=== PATIENT | male | born 1960 | race Caucasian/White ===

== ENCOUNTER 2020-05-22 15:17 | Observation (INO) | payer BC, OTHER ==
[2020-05-22] MEDS ORDERED: Ketorolac Tromethamine 30 MG/ML VIAL ONE (16:36)
[2020-05-22] MEDS ORDERED: Morphine 4 MG/ML VIAL ONE (16:36)
[2020-05-22] MEDS ORDERED: Ondansetron PF 4 MG/2 ML Vial ONE (16:36)
[2020-05-22 17:02] LABS: #Basophils 0.1 thou/uL (0.0-0.2); #Eosinphils 0.1 thou/uL (0.0-0.7); #Lymphocytes 1.4 thou/uL (1.20-3.40); #Monocytes 1.2 thou/uL (0.11-0.59); #Neutrophils 7.4 thou/uL (1.40-6.50); %Basophils 0.8 % (0.0-1.0); %Eosinophils 0.9 % (0.0-10.0); %Lymphocytes 13.7 % (21.0-51.0); %Monocytes 11.8 % (0.0-10.0); %Neutrophils 72.9 % (42.0-75.0); Hemoglobin 15.2 g/dL (14.0-18.0); Mean Corpuscular HGB CONC 31.9 g/dL (32.0-36.0); Mean Corpuscular Hemoglobin 25.2 pg (27.0-31.0); Mean Corpuscular Volume 78.9 fL (78.0-98.0); Mean Platelet Volume 7.9 fL (7.4-10.4); Platelet Count 268 thou/uL (130-400); RBC Distribution Width 14.2 % (11.5-14.5); Red Blood Cell (RBC) Count 6.01 mill/uL (4.70-6.10); White Blood Cell (WBC) Count 10.1 thou/uL (4.8-10.8)
[2020-05-22 17:28] LABS: ALT (SGPT) 17 U/L (8-55); AST (SGOT) 17 U/L (5-34); Albumin 4.2 g/dL (3.5-5.0); Alkaline Phosphatase 66 U/L (40-110); Anion Gap 15 mmol/L (10-20); BUN (Urea Nitrogen) 33 mg/dL (8.4-25.7); Calc. Creatinine Clearance 0 mL/min (70-130); Calcium 9.3 mg/dL (7.8-10.44); Carbon Dioxide 26 mmol/L (22-29); Chloride 102 mmol/L (98-107); Estimated GFR-MDRD 32; Glucose 82 mg/dL (70-105); Potassium 4.3 mmol/L (3.5-5.1); Protein, Total 7.2 g/dL (6.0-8.3); Sodium 139 mmol/L (136-145)
[2020-05-22 19:46] LABS: Bilirubin Negative (Negative); Blood, Urine Negative (Negative); Clarity Clear (Clear); Glucose, Urine (Dipstick) Normal (Negative); Ketone, Urine Trace mg/dL (Negative); Leukocyte 25 Leu/uL (Negative); Nitrite Negative (Negative); Protein, Urine (Dipstick) Negative (Neg-Trace); Specific Gravity, Urine 1.029 (1.002-1.036); Urobilinogen Normal mg/dL (Less than 2)
[2020-05-22 19:47] LABS: Bacteria/HPF None Seen HPF (None Seen); Mucous/LPF Rare LPF (<2+); RBC/HPF 0-3 HPF (0-3); Squamous Epithelial None Seen HPF (0-3)
[2020-05-22] MEDS ORDERED: cefTRIAXone\\ROCEPHIN 1 GM VIAL ONE (20:46)
[2020-05-22] MEDS ORDERED: Ondansetron PF 4 MG/2 ML Vial IVP PRN (22:40)
[2020-05-22] MEDS ORDERED: Sodium Chloride 0.9% 1,000 ML IV SCH (22:40)
[2020-05-22] MEDS ORDERED: Ondansetron ODT 4 MG TAB SL PRN (22:40)
[2020-05-22 23:03] VITALS: BMI 31.8
[2020-05-23] MEDS: Morphine 4 MG/ML VIAL SLOW IVP PRN ×2 (01:52→06:52)
[2020-05-23] MEDS ORDERED: Iothalamate Meglumine 60% 50 ML VIAL FS ONE (08:59)
[2020-05-23] MEDS ORDERED: B & O ONE (08:59)
[2020-05-23] MEDS ORDERED: Sodium Chloride 0.9% 10 ML ONE ×2 (09:17→09:18)
[2020-05-23] MEDS ORDERED: Fentanyl 100 MCG/2 ML VIAL ONE (09:34)
[2020-05-23] MEDS ORDERED: traMADol HCl 50 MG TAB PO PRN (09:48)
[2020-05-23] MEDS ORDERED: Oxybutynin 5 MG TAB PO PRN (09:48)
[2020-05-23] MEDS ORDERED: PROPOFOL 200 MG/20 ML VIAL ONE (10:06)
[2020-05-23] MEDS ORDERED: Glycopyrrolate 0.2 MG/ML 5 ML SYRINGE ONE (10:06)
[2020-05-23] MEDS ORDERED: Rocuronium Bromide 10 MG/ML (10ML VIAL) ONE (10:06)
[2020-05-23] MEDS ORDERED: Lidocaine 1% PF 5 ML VIAL ONE (10:06)
[2020-05-23] MEDS ORDERED: Ondansetron PF 4 MG/2 ML Vial ONE (10:06)
--- NOTE | 2020-05-23 10:20 | HP ---
REASON FOR ADMISSION: Acute kidney injury with right ureteral stone. CHIEF COMPLAINT: "I got this big stone." HISTORY OF PRESENT ILLNESS: Mr. Sanchez is a 60-year-old white male who presented with a 1-week history of right flank pain. He states that he has a long history of stones and has passed numerous stones in the past. He has began feeling like he had another kidney stone and thought he could pass it after a week with associated nausea and vomiting and low-grade temperature between 99 and 100, which then subsequently dissipated after the second day of pain. The patient stated that the pain would not let up, and he felt like he probably should get this checked out. He went to go and see his primary care physician who ordered a CT scan at [facility] that demonstrated approximately a 6 x 12 mm proximal ureteral stone with associated small nephrolithiasis. There was hydronephrosis on the right. Due to the size of the stone, his PCP advised him that he probably would not pass a stone and recommend he go to the emergency room. In the ER, he had labs drawn, which demonstrated an acute kidney injury with a creatinine of 2.1. It is unknown what the patient's baseline creatinine is. Due to the large size of the stone and acute kidney injury, I recommended that he come into the hospital for discussion of either stenting or definitive stone management. He was admitted to the hospital. Upon arriving at the hospital in discussing with the patient, he states his pain is feeling somewhat better. His pain is currently about a 3/10, controlled on pain medication with morphine. He is no longer vomiting. He has been afebrile. He has not passed the stone. He states he would rather have the stone definitively managed. Per my recommendations, the patient has been already received a dose of Rocephin. His urinalysis shows no strong evidence of infection. ALLERGIES: ADVERSE REACTION, DEMEROL, BUT NO SPECIFIC DRUG ALLERGIES. HOME MEDICATIONS: 1. Metformin. 2. Aspirin. 3. Ezetimibe. 4. Simvastatin. 5. Clopidogrel. 6. Olmesartan. 7. Metformin. 8. Coenzyme Q10. 9. Testosterone cypionate injections. 10. Cyclobenzaprine p.r.n. 11. Vascepa. PAST MEDICAL HISTORY: 1. Coronary artery disease. 2. Hypertension. 3. Gastroesophageal reflux disease. 4. Nephrolithiasis. 5. BPH. 6. Hyperlipidemia. 7. Insulin resistance. 8. History of nephrolithiasis. PAST SURGICAL HISTORY: 1. Coronary artery disease with coronary stents placed by Dr. Green in September of 2019. 2. Ruptured tendon repair. FAMILY HISTORY: Significant for father with kidney stones and cardiovascular disease, otherwise unremarkable. SOCIAL HISTORY: The patient denies alcohol abuse, illicit drug use, or tobacco abuse. REVIEW OF SYSTEMS: A 12-point review of systems reviewed with the patient and unremarkable other than what was commented on the HPI. Specifically, he is not having any chest pain or shortness of breath. The nausea and vomiting have subsided, and he is afebrile. PHYSICAL EXAMINATION: VITAL SIGNS: Temperature 98.7, pulse 86, respirations 12, blood pressure 135/72, and saturation is 95% on room air. GENERAL: No apparent distress. Communicative. Alert. Well-nourished, well-developed, overweight, answering questions appropriately. HEENT: Normocephalic, atraumatic. Pupils are symmetric and round. Sclerae nonicteric. Trachea midline. Moist mucous membranes. CARDIOVASCULAR: Regular rate and rhythm. Normal S1, S2. Symmetric pulses. CHEST: Nonlabored breathing, symmetric expansion. LUNGS: Clear anteriorly. ABDOMEN: Soft, nontender, nondistended. Positive bowel sounds. No rebound or guarding. No organomegaly. No obvious hernias. GENITOURINARY: Deferred at this time. EXTREMITIES: No clubbing, cyanosis, or edema. SKIN: Warm, dry. No rashes or lesions. Good turgor. MUSCULOSKELETAL: No obvious joint deformities or joint erythema noted. Full range of motion. NEUROLOGIC: Cranial nerves 2 through 12 grossly intact. No focal or sensory motor deficits identified. LYMPH: No obvious lymphadenopathy identified. PSYCHIATRIC: Alert and oriented x3. Appropriate mood and affect. LABORATORY EVALUATION: Full set of labs are in the [employer] [facility] which I have reviewed. Of note, the patient's white count is 10.1 with a hemoglobin of 15.2. Creatinine is currently 2.14 as of labs drawn yesterday. Urinalysis demonstrates trace ketones, 25 leukocyte esterase, and 4 to 6 wbc's, no bacteria, nitrite negative. CT: I have reviewed the CT myself. There is no official read from [facility], but it does demonstrate bilateral small 1 to 2 mm nephrolithiasis with an associated 6 x 12 mm proximal right ureteral stone with associated [id number] hydronephrosis. ASSESSMENT AND PLAN: A 60-year-old white male with a right large proximal ureteral stone with hydronephrosis and acute kidney injury. There is no evidence of urinary tract infection or infection at all. I do feel the patient could undergo a definitive ureteroscopy at this time since he has already been started on antibiotics. I explained the ureteroscopic procedure to the patient, the postoperative course, need for ureteral stenting afterwards as well as risks which are include, but are not limited to bleeding, infection, damage to the ureter, inability to remove the entire stone, ureteral stricture development, ureteral perforation, damage to the kidney, bladder, urethra, prostate, and need for further procedures. He understands the risks and states he would like to proceed forward with ureteroscopy. I have also explained the need to come back for followup to ensure that the stent becomes removed, also it does not become retained and cause further damage or serious complications with his kidney. The patient states he understands, and he will keep his followup appointment. With regard to his blood thinners, he is currently taking his aspirin. He has not been taking his clopidogrel secondary to vomiting. I have strongly recommended since he is more than 6 months out from his ureteral stent that he considered not taking his clopidogrel for the next few days to ensure that he does not end up with severe hematuria and clot retention. I will see strongly recommended that as soon as Dr. Green's office is back on Monday that he should contact Dr. Green and notify him that he is holding his clopidogrel if Dr. Green feels very strongly about the patient remaining on his clopidogrel, then he should restart it and we will have to deal with a hematuria and potential clot retention thereafter. He can remain on his aspirin for some cardioprotective benefits as it has less blood thinning risks. I have also recommended the patient consider a stone metabolic workup in the future, which we can discuss after discharge. For now, we will plan to take him to the operating room as he was all prepared for surgery. PLAN: 1. N.p.o. 2. IV fluids. 3. IV pain medication. 4. To operating room for cystoscopy, right ureteroscopy, laser lithotripsy, basket extraction of stone and placement of a stent. 5. The patient will be discharged to home afterwards. 6. The patient should hold antiplatelets except aspirin after treatment to avoid significant hematuria. 7. The patient may resume all other home medications. 8. We will plan to follow up as an outpatient to remove stent implants from metabolic workup. 9. The patient can continue antibiotics while in the hospital, but will not need them after discharge. Job ID: [id number]
[2020-05-23] MEDS ORDERED: Ondansetron HCl/PF 4 MG/2 ML Vial IVP PRN (11:07)
[2020-05-23] MEDS ORDERED: Promethazine HCl 25 MG/ML VIAL IM PRN (11:07)
[2020-05-23] MEDS ORDERED: Promethazine HCl 25 MG/ML VIAL SLOW IVP PRN (11:07)
--- NOTE | 2020-05-23 11:24 | OP ---
DATE OF PROCEDURE: 05/23/2020 SERVICE: Urology. PREOPERATIVE DIAGNOSIS: Right ureteral stone. POSTOPERATIVE DIAGNOSIS: Right ureteral stone. PROCEDURES PERFORMED: 1. Right ureteroscopy. 2. Laser lithotripsy. 3. Basket extraction of stone. 4. Placement of a 6 x 26 double-J stent on the right. INDICATIONS FOR PROCEDURE: Mr. Sanchez is a 60-year-old white male with history of nephrolithiasis, who presented with an approximately 12-mm right UPJ stone. Due to the low probability of passage and a concurrent acute kidney injury, I recommended he come in just for ureteroscopy and removal of the stone. Risks and benefits were discussed and he has agreed to proceed forward. DESCRIPTION OF PROCEDURE: After identification of armband and verification of consent, the patient was brought back to the operating room where he underwent general anesthesia with endotracheal intubation. He was then placed in a dorsal lithotomy position and prepped and draped in usual sterile fashion. After appropriate time-out, a 22-[place]an rigid cystoscope was introduced per urethra into the bladder. Attention was turned to the right ureteral orifice which was cannulated with a 0.035 Sensor wire up to the level of renal pelvis. Of note, the prostate was hypertrophic with an elevated bladder neck and median lobe, which did not extend intravesically. There was also significant lateral lobe coaptation, consistent with the patient's known history of BPH. Once the wire was in the right renal pelvis, the cystoscope was removed while draining the bladder. A dual-lumen catheter was advanced over the Sensor wire up to the level of the stone. An Amplatz Super Stiff wire was then placed through the second lumen of the dual-lumen up to the level of renal pelvis and the dual-lumen removed. A Bard green 12/14-Rwandan long ureteral access sheath was advanced up to the level of the stone over the Super Stiff wire. The inner cannula and the Super Stiff wire were then removed, leaving the outer sheath and the Sensor wire in place as a safety wire. A flexible digital ureteroscope was then passed through the ureteral access sheath up to the renal pelvis. The stone had at this point become dislodged and fall into the renal pelvis. The stone was manipulated into the upper pole for easier fragmentation. There, a 273 micron ball-tipped laser fiber was used to fragment the stone into small pieces and then a 1.9-R[place]andan ZeroTip Nitinol basket used to remove all specimen. An additional stone was found in the lower pole, which was basketed out. Upon completion, all stone fragments over 1 mm in size were removed. The remaining fragments were all dust fragments or very small particulate that were too small to grab. I did feel that the rest of this particular matter should pass without problem. A full pyeloscopy did not demonstrate any additional stone fragments. Pull-back ureteroscopy was employed and there was no mucosal splitting and no additional stone fragments within the ureter. The ureteroscope and sheath were then removed and the cystoscope was back-loaded over the Sensor wire back into the bladder. A 6 x 26 double-J stent was advanced over the Sensor wire up to the level of renal pelvis and then the wire removed, leaving a good curl in the kidney and a good curl in the bladder. The bladder was then emptied and the cystoscope removed. B and O suppository was placed in the patient's rectum, then he was taken out of positioning, awakened, taken to PACU for recovery in stable condition. COMPLICATIONS: None. ESTIMATED BLOOD LOSS: Minimal. RETAINED TUBES AND DRAINS: A 6 x 26 double-J stent on the right. SPECIMENS: Stone for stone analysis. DISPOSITION: The patient will be discharged home. He will follow up with me in approximately 1 week for cystoscopy and stent removal, at which point we can then work on stone prevention with a stone metabolic workup. Job ID: [id number]
[2020-05-23 12:35] LABS: SARS-CoV-2 MS2 Positive; SARS-CoV-2 N Gene Negative; SARS-CoV-2 S Gene Negative; SARS-CoV-2 by NAA Not Detected (NotDetected); SARS-CoV-2 orf1ab Negative
[2020-05-23 12:39] VITALS: BP 124/75; TEMP 98.6
[2020-05-23] MEDS ORDERED: Ezetimibe 10 MG TAB PO SCH (21:00)
[2020-05-23] MEDS ORDERED: Atorvastatin Calcium 20 MG TAB PO SCH (21:00)
[2020-05-23] MEDS ORDERED: Metoprolol Tartrate 50 MG TAB PO SCH (21:00)
[2020-05-24] MEDS ORDERED: Tamsulosin HCl 0.4 MG CAP PO SCH (09:00)
[2020-05-24] MEDS ORDERED: Aspirin Chewable 81 MG TAB PO SCH (09:00)
[2020-05-24] MEDS ORDERED: metFORMIN 500 MG TAB PO SCH (09:00)
--- NOTE | 2020-05-25 06:44 | DIS ---
DATE OF ADMISSION: 05/22/2020 DATE OF DISCHARGE: 05/23/2020 DISCHARGING PHYSICIAN: Christopher Cook MD ADMITTING DIAGNOSES: Ureteral stone with acute kidney injury and coronary artery disease. DISCHARGE DIAGNOSES: 1. Ureteral stone with acute kidney injury. 2. BPH. 3. Coronary artery disease. BRIEF HISTORY: Mr. Sanchez is a 60-year-old white male with cardiac disease, currently on anti-platelet therapy, who came in with severe right flank pain. He was found to have an approximately 12 mm right UPJ stone. He did not feel that he would be able to pass this. As I agreed, he elected to stay in the hospital and have this treated. The full H and P can be found in the dictated portion of the [employer] [facility]. HOSPITAL COURSE: The patient was admitted to the hospital, he received IV pain control and antiemetics. He stated that he had been off his anti-platelet therapy for few days secondary to vomiting. On May 23, he was taken the operating room, where he underwent a ureteroscopy with successful removal of the stone. A stent was left in place postoperatively. He was then discharged home. DISPOSITION: Discharged to home. DISCHARGE CONDITION: Good. DISCHARGE MEDICATIONS: The patient may resume all of his home medications except his aspirin and Plavix, which I have recommended that he hold. He is also to contact Dr. Green, his outpatient physical therapist assistant to ensure that this is okay to hold for approximately 1 week until the stent can be removed. Additional medications were given to the patient including tramadol, Colace, oxybutynin, and Pyridium for symptomatic control. The patient will follow up with me in approximately 1 week for cystoscopy and stent removal. Job ID: [id number]
--- NOTE | 2020-05-27 22:42 | EKG ---
Test Reason : Blood Pressure : / mmHG Vent. Rate : 082 BPM Atrial Rate : 082 BPM P-R Int : 146 ms QRS Dur : 082 ms QT Int : 350 ms P-R-T Axes : 004 014 002 degrees QTc Int : 408 ms Normal sinus rhythm Normal ECG Confirmed by HUAN CANTOR, DR. Rankin ([id number]) on 05/27/2020 10:42:08 PM Referred By: JANE Confirmed By:DR. Chucho PRESSLEY MD
== END 2020-05-23 13:25 | disposition home or self-care (01) ==
LOC: ERS 15:17 → SURG A 20:35
PROVIDERS: ADMIT Internal Medicine; ATTEND Internal Medicine
PROC: 0TC68ZZ Extirpation of Matter from Right Ureter, Via Natural or Artificial Opening Endoscopic (ICD-10-PCS; principal; 2020-05-23)
PROC: 0T768DZ Dilation of Right Ureter with Intraluminal Device, Via Natural or Artificial Opening Endoscopic (ICD-10-PCS; 2020-05-23)
DX: N13.2 Hydronephrosis with renal and ureteral calculous obstruction (principal); N17.9 Acute kidney failure, unspecified; N40.0 Benign prostatic hyperplasia without lower urinary tract symptoms; I25.10 Atherosclerotic heart disease of native coronary artery without angina pectoris; K21.9 Gastro-esophageal reflux disease without esophagitis; E88.81 Metabolic syndrome and other insulin resistance; Z79.02 Long term (current) use of antithrombotics/antiplatelets; Z79.82 Long term (current) use of aspirin; Z79.84 Long term (current) use of oral hypoglycemic drugs; Z79.899 Other long term (current) drug therapy; Z95.5 Presence of coronary angioplasty implant and graft; Z20.828 Contact with and (suspected) exposure to other viral communicable diseases
CPT/HCPCS: 76000; 80053; 81003; 81015; 82365; 85025; 87635; 88300; 93005; 93010; 96361; 96365; 96375; 96376; G0378; J0696; J1885; J2270; J2405; J2704; J3010; U0003